=== PATIENT | female | born 1980 | race Two or more races ===

== ENCOUNTER 2016-06-17 09:04 | Emergency (ER) | payer SELFPAY ==
[~2016-06-17] VITALS: Ht 170.2 cm; Wt 70.0 kg
[2016-06-17] MEDS ORDERED: METOCLOPRAMIDE 5 MG/ML, 2ML ONE ×2 (09:39→13:11)
[2016-06-17] MEDS ORDERED: DIPHENHYDRAMINE 50 MG/ML, 1ML ONE (09:39)
[2016-06-17 09:53] LABS: HEMOGLOBIN 15.4 g/dL (11.7-16.4)
[2016-06-17] MEDS ORDERED: SODIUM CHLORIDE 0.9% 1,000ML IVBOLUS ONE ×2 (10:00→13:30)
[2016-06-17] MEDS ORDERED: DIPHENHYDRAMINE 50 MG/ML, 1ML IVPush ONE (10:00)
[2016-06-17] MEDS ORDERED: SODIUM CHLORIDE FLUSH 10ML SYR IVF ONE (10:00)
[2016-06-17] MEDS ORDERED: METOCLOPRAMIDE 5 MG/ML, 2ML IVPush ONE ×2 (10:00→13:30)
[2016-06-17 10:18] LABS: BLOOD UREA NITROGEN 9 mg/dL (7-18)
[2016-06-17] MEDS ORDERED: DIHYDROERGOTAMINE 1 MG/ML, 1ML IVPush ONE (11:00)
[2016-06-17] MEDS ORDERED: MORPHINE SULFATE 4 MG/ML, 1ML IVPush PRN (11:00)
[2016-06-17] MEDS ORDERED: MORPHINE SULFATE 4 MG/ML, 1ML ONE (11:14)
[2016-06-17 12:51] VITALS: BP 107/68
[2016-06-17] MEDS ORDERED: KETOROLAC 30 MG/1 ML ONE (13:11)
[2016-06-17] MEDS ORDERED: methylPREDNISolone SOD SUCC 125 MG/2 ML ONE (13:11)
[2016-06-17] MEDS ORDERED: KETOROLAC 30 MG/1 ML IVPush ONE (13:30)
[2016-06-17] MEDS ORDERED: methylPREDNISolone SOD SUCC 125 MG/2 ML IVPush ONE (13:30)
== END 2016-06-17 14:04 | disposition home or self-care (01) ==
LOC: ED 09:26
DX: G44.52 New daily persistent headache (NDPH) (principal)
CPT/HCPCS: 36415; 80048; 82040; 85025; 96361; 96374; 96375; 99285; J1110; J1200; J1885; J2765; J2930; J7030